=== PATIENT | male | born 1960 | race Caucasian/White ===

== ENCOUNTER 2022-04-25 14:01 | Emergency (ER) | payer BC, SELFPAY ==
[2022-04-25] VITALS (8 sets, daily range): BP systolic 74–106; BP diastolic 32–60; PULSE 74–83; RESP 16–20; TEMP 36.9; O2SAT 98–99; BMI 31.3
--- NOTE | 2022-04-25 14:11 | ECG_ITS ---
Test Reason : dizziness Blood Pressure : / mmHG Vent. Rate : 080 BPM Atrial Rate : 080 BPM P-R Int : 170 ms QRS Dur : 100 ms QT Int : 366 ms P-R-T Axes : 064 044 062 degrees QTc Int : 422 ms Normal sinus rhythm Low voltage QRS Borderline ECG No previous ECGs available Referred By: Tegan Parkinson Electronically Signed By:RYLAN ALVARADO MD
--- NOTE | 2022-04-25 14:12 | ED.SYNCOPE ---
HPI - Syncope General Chief Complaint: Syncope Stated Complaint: Syncope Time Seen by Provider: 04/25/22 14:05 Source: patient and family Mode of arrival: EMS Limitations: no limitations History of Present Illness HPI narrative: 61 yo male with hx of HTN, HLD, prior syncopal event 1 year ago - related to dehydration and his BP medications were decreased at that time. He has done well since then. Today he was outside [employer] and became very hot. He went inside to the , felt very hot and went to use the bathroom - he was pushing and straining to have a bowel movement. The patient then was found down on the ground by his . He was pushing hard to have BM and knew he was going to pass out - dizzy,tunnel vision. No injuries reported. Initially BP very low with EMS in the 70s, started with IVF. MD complaint: loss of consciousness and felt faint Onset (ago): minute(s) (just prior to arrival ) Duration of episode: 1 -: minutes(s) Prodromal symptoms: lightheaded and diaphoresis Witnessed: No Context: other (after working outside then pushing to have BM) Injuries sustained associated with event: none Current symptoms: back to baseline (other than BP remains low) History: previous syncopal episode Treatments prior to arrival: IV fluids Related Data Allergies Allergy/AdvReac Type Severity Reaction Status Date / Time No Known Allergies Allergy Verified 04/25/22 14:10 Review of Systems Review of Systems: Constitutional : No Fever, No Chills ENT/Mouth : No sore throat, No Rhinorrhea Eyes: No Eye Pain, No Swelling, No Redness Cardiovascular : No Chest Pain, No SOB Respiratory : No Cough, No Sputum, No Wheezing Gastrointestinal : pos Nausea, No Vomiting, No Diarrhea, No Constipation, No abdominal Pain, No Hematochezia, No Melena Genitourinary : No Dysuria, No Urinary Frequency, No Hematuria, Musculoskeletal : No joint pain, No Myalgias, No Joint Swelling Skin : No Skin Lesions, No rash Neuro : No Weakness, No Numbness, No Dizziness, No Headache, pos syncope Psych : No Anxiety/Panic, No Depression All other systems reviewed and are negative PMFSH Past Medical History Attestation statement: The following information was validated with the patient. Medical History HTN (hypertension) Hyperlipidemia Syncope Social History Social History Alcohol intake: former Patient Tobacco Use Status: Current someday Tobacco user Tobacco use type: Cigar Advance Directives: No Advance Directives Information Provided: Yes Physical Exam Vital Signs: Vital Signs: Last Vital Signs Temp 98.4 F 04/25/22 14:12 Pulse 82 04/25/22 15:00 Resp 20 04/25/22 15:00 BP 95/53 L 04/25/22 15:36 Pulse Ox 99 04/25/22 15:36 O2 Del Method 04/25/22 15:36 BMI result Body Mass Index 31.3 Appearance: Alert. Oriented X3. No acute distress. Eyes: Pupils equal, round and reactive to light. ENT: Pharynx normal. Neck: Normal inspection. Neck supple. CVS: Normal heart rate and rhythm. Pulses normal. Respiratory: No respiratory distress. Breath sounds normal. Abdomen: Soft and non-tender. Skin: Skin warm and clammy pale skin color. Normal skin turgor. Extremities: No lower extremity edema. No calf ttp Neuro: Oriented X 3. No motor deficit. No sensory deficit. Course Course Course Narrative: hypotension due to dehydration/vasovagal syncope and not infection or severe sepsis pending IVF and repeat BMP - anticipate DC home patient feels much better and has no complaints at this time, plan to hold BP meds x 2 days and start metoprolol check BP as long as it is stable start lisinopril the next day and follow up with PCP this week. signed out to Dr. Patrick MDM - Syncope MDM Narrative Medical decision making narrative: 61 yo male with hx of HTN, HLD, prior syncopal event 1 year ago no new med changes had syncopal event with prodrome after working outside in the heat - syncopized while pushing having BM. At this time will need labs, IVF x 2L, EKG, No CP/SOB to suggest ACS/PE. No GIB symptoms. Dispo per results and findings. Lab Data Result diagrams: 04/25/22 14:29 04/25/22 14:29 Labs: Lab Results 04/25/22 04/25/22 04/25/22 Range/Units 14:29 14:29 14:29 WBC 14.8 H (4.8-10.8) X10*3/uL RBC 3.71 L (4.60-5.80) X10*6/uL Hgb 11.4 L (14.0-18.0) g/dl Hct 35.1 L (42.0-52.0) % MCV 94.6 (80.0-98.0) fL MCH 30.7 (27.0-33.0) pg MCHC 32.5 (31.0-36.0) g/dl RDW 12.7 (11.0-16.0) % Plt Count 155 L (160-400) X10*3/uL MPV 12.8 H (9.4-12.4) fL Immature Gran % (Auto) 0.5 H (0.0-0.4) % Neut % (Auto) 82.5 H (45-73) % Lymph % (Auto) 11.8 L (20-40) % [place] % (Auto) 3.9 (2-11) % Eos % (Auto) 0.6 (0-4) % Baso % (Auto) 0.7 (0-2) % Lymph # (Auto) 1.7 (1.2-4.9) X10*3/uL [place] # (Auto) 0.6 (0.1-1.2) X10*3/uL Eos # (Auto) 0.1 (0.0-0.4) X10*3/uL Baso # (Auto) 0.1 (0.0-0.2) X10*3/uL Abs Immat Gran (auto) 0.07 H (0.00-0.03) X10*3/uL Absolute Neuts (auto) 12.2 H (2.0-8.3) x10*3/uL Absolute Nucleated RBC 0.000 (0.0-0.012) X10*3/uL Nucleated RBC % (auto) 0.0 (0.0-0.2) /100WBC Sodium 137 (135-145) mmol/L Potassium 4.4 (3.3-5.1) mmol/L Chloride 105 (96-108) mmol/L Carbon Dioxide 22 (22-29) mmol/L Anion Gap 14 (12-20) BUN 21 H (9-16) mg/dL Creatinine 1.69 H (0.5-1.4) mg/dL Estim Creat Clear Calc 49.3 Estimated GFR 41 Random Glucose 163 H (60-115) mg/dL Calcium 8.3 L (8.4-10.2) mg/dL Magnesium 2.0 (1.6-2.6) mg/dL Total Bilirubin 0.6 (0.0-1.0) mg/dL Direct Bilirubin 0.2 (0.0-0.5) mg/dL AST 10 (5-37) U/L ALT 12 (0-40) U/L Alkaline Phosphatase 43 (39-117) U/L Troponin I High Sens < 3.5 (<3.5-35.0) ng/L B-Natriuretic Peptide < 10 (<100) pg/mL Total Protein 6.6 (6.5-8.0) g/dL Albumin 4.0 (3.5-5.0) g/dL Lipase 27 (8-78) U/L COVID-19 ([facility]) (Negative) COVID-19 Clin Com 04/25/22 Range/Units 14:29 WBC (4.8-10.8) X10*3/uL RBC (4.60-5.80) X10*6/uL Hgb (14.0-18.0) g/dl Hct (42.0-52.0) % MCV (80.0-98.0) fL MCH (27.0-33.0) pg MCHC (31.0-36.0) g/dl RDW (11.0-16.0) % Plt Count (160-400) X10*3/uL MPV (9.4-12.4) fL Immature Gran % (Auto) (0.0-0.4) % Neut % (Auto) (45-73) % Lymph % (Auto) (20-40) % [place] % (Auto) (2-11) % Eos % (Auto) (0-4) % Baso % (Auto) (0-2) % Lymph # (Auto) (1.2-4.9) X10*3/uL [place] # (Auto) (0.1-1.2) X10*3/uL Eos # (Auto) (0.0-0.4) X10*3/uL Baso # (Auto) (0.0-0.2) X10*3/uL Abs Immat Gran (auto) (0.00-0.03) X10*3/uL Absolute Neuts (auto) (2.0-8.3) x10*3/uL Absolute Nucleated RBC (0.0-0.012) X10*3/uL Nucleated RBC % (auto) (0.0-0.2) /100WBC Sodium (135-145) mmol/L Potassium (3.3-5.1) mmol/L Chloride (96-108) mmol/L Carbon Dioxide (22-29) mmol/L Anion Gap (12-20) BUN (9-16) mg/dL Creatinine (0.5-1.4) mg/dL Estim Creat Clear Calc Estimated GFR Random Glucose (60-115) mg/dL Calcium (8.4-10.2) mg/dL Magnesium (1.6-2.6) mg/dL Total Bilirubin (0.0-1.0) mg/dL Direct Bilirubin (0.0-0.5) mg/dL AST (5-37) U/L ALT (0-40) U/L Alkaline Phosphatase (39-117) U/L Troponin I High Sens (<3.5-35.0) ng/L B-Natriuretic Peptide (<100) pg/mL Total Protein (6.5-8.0) g/dL Albumin (3.5-5.0) g/dL Lipase (8-78) U/L COVID-19 ([facility]) Negative (Negative) COVID-19 Clin Com See Note ECG Data Attestation: I personally reviewed and interpreted this ECG as follows: ECG interpretation date: 04/25/22 ECG interpretation time: 15:09 Interpretation: Rate: 80 Rhythm: NSR [place]: normal Normal P waves. Normal RUBIO. Normal QRS complex. ST T wave : normal no APRYL qTC: normal prior studies: no acute ischemia The study has been interpreted contemporaneously by me. Discharge Plan Discharge Clinical Impression: Dehydration, Acute renal insufficiency Syncope Qualifiers: Syncope type: vasovagal syncope Qualified Code(s): R55 - Syncope and collapse Patient Disposition: Still a Patient Instructions: Dehydration (ED), Syncope (ED) Additional Instructions: return to ED for any worsening symptoms or concerns HOLD BLOOD PRESSURE MEDICATIONS X 2 DAYS START METOPROLOL FIRST IF BLOOD PRESSURE STABLE AND ABOVE 110 OKAY TO START LISINOPRIL THE FOLLOWING DAY BUT START AT 1/2 DOSE 5MG. IF BLOOD PRESSURE REMAINS STABLE ABOVE 110 ON BOTH MEDICATIONS IT IS OKAY TO RESUME ALL BLOOD PRESSURE MEDICATIONS AT NORMAL DOSE. Referrals: Freddy De La Cruz MD [Primary Care Provider] - 3 days Stand Alone Forms: Work/School Release
[2022-04-25] MEDS: Lactated Ringers 1,000 ML 999 ML IV ×3 (14:33→15:50)
[2022-04-25 14:34] LABS: MANUAL DIFF FLAG NO
[2022-04-25 14:38] LABS: Basophils Absolute Auto 0.1 X10*3/uL (0.0-0.2); Basophils Percent Auto 0.7 % (0-2); Eosinophils Absolute Auto 0.1 X10*3/uL (0.0-0.4); Eosinophils Percent Auto 0.6 % (0-4); Hematocrit 35.1 % (42.0-52.0); Hemoglobin 11.4 g/dl (14.0-18.0); Imm Gran Abs Auto 0.07 X10*3/uL (0.00-0.03); Imm Gran Pct Auto 0.5 % (0.0-0.4); Lymphocytes Absolute Auto 1.7 X10*3/uL (1.2-4.9); Lymphocytes Percent Auto 11.8 % (20-40); Mean Corpuscular HGB Conc 32.5 g/dl (31.0-36.0); Mean Corpuscular Hemoglobin 30.7 pg (27.0-33.0); Mean Corpuscular Volume 94.6 fL (80.0-98.0); Mean Platelet Volume 12.8 fL (9.4-12.4); Monocytes Absolute Auto 0.6 X10*3/uL (0.1-1.2); Monocytes Percent Auto 3.9 % (2-11); Neutrophils Absolute Auto 12.2 x10*3/uL (2.0-8.3); Neutrophils Percent Auto 82.5 % (45-73); Platelet Count 155 X10*3/uL (160-400); Red Blood Count 3.71 X10*6/uL (4.60-5.80); Red Cell Distribution Width 12.7 % (11.0-16.0); White Blood Count 14.8 X10*3/uL (4.8-10.8)
[2022-04-25 14:51] LABS: COVID-19 Test Negative (Negative)
[2022-04-25 14:53] LABS: Alanine Aminotransferase 12 U/L (0-40); Alkaline Phosphatase 43 U/L (39-117); Anion Gap 14 (12-20); Aspartate Amino Transferase 10 U/L (5-37); Bilirubin Direct 0.2 mg/dL (0.0-0.5); Bilirubin Total 0.6 mg/dL (0.0-1.0); Blood Urea Nitrogen 21 mg/dL (9-16); Calcium 8.3 mg/dL (8.4-10.2); Carbon Dioxide 22 mmol/L (22-29); Chloride 105 mmol/L (96-108); Creatinine Clr Calc Pharmacy 49.3; Estimated Glomerular Filt Rate 41; Glucose Random 163 mg/dL (60-115); Lipase 27 U/L (8-78); Potassium 4.4 mmol/L (3.3-5.1); Sodium 137 mmol/L (135-145); Total Protein 6.6 g/dL (6.5-8.0)
[2022-04-25 14:56] LABS: Troponin-I High Sensitivity < 3.5 ng/L (<3.5-35.0)
--- NOTE | 2022-04-25 15:38 | PC.NURSE ---
Pt is ort X 3. Denies dizziness at rest, denies cp, sob. Third Liter of fluid currently running. Maintained a systolic bp in the 90s in the last hour, MAP >60. pt had loose BM upon arrival to facility, no straining, no syncope since arrival.
[2022-04-25 15:45] LABS: B Type Natriuretic Peptide < 10 pg/mL (<100)
--- NOTE | 2022-04-25 15:52 | MHC.CM.ED ---
PATIENT ASKS FOR HCP DOCUMENTATION. COMPLETED DOC UPLOADED INTO [employer] AND PATIENT HAS [id number] WITH 1 COPY. 1 COPY ALSO PLACED IN PAPER CHART. PATIENT NAMES HIS , LEONARDO ([phone]), SOLE AGENT.
[2022-04-25 18:04] LABS: Anion Gap 13 (12-20); Blood Urea Nitrogen 18 mg/dL (9-16); Calcium 8.3 mg/dL (8.4-10.2); Carbon Dioxide 24 mmol/L (22-29); Chloride 106 mmol/L (96-108); Creatinine Clr Calc Pharmacy 63.6; Estimated Glomerular Filt Rate 56; Glucose Random 108 mg/dL (60-115); Potassium 4.4 mmol/L (3.3-5.1); Sodium 139 mmol/L (135-145)
== END 2022-04-25 18:54 | disposition home or self-care (01) ==
PROVIDERS: Emergency Medicine; Emergency Provider Student in an Organized Health Care Education/Training Program; PCP Family Medicine
DX: R55 Syncope and collapse (principal); E86.0 Dehydration; N28.9 Disorder of kidney and ureter, unspecified; Z20.822 Contact with and (suspected) exposure to COVID-19; I10 Essential (primary) hypertension; E78.5 Hyperlipidemia, unspecified; F17.200 Nicotine dependence, unspecified, uncomplicated
CPT/HCPCS: 36415; 80048; 80076; 83690; 83735; 83880; 84484; 85025; 87635; 93005; 96360; 96361; 99284; 99285